=== PATIENT | male | born 1950 | race Two or more races ===

== ENCOUNTER 2020-12-15 12:54 | Emergency (ER) | payer BC, OTHER ==
[~2020-12-15] VITALS: Ht 165.1 cm; Wt 81.6 kg
[2020-12-15 13:00] VITALS: BP 132/59
[2020-12-15 13:46] LABS: Urine Bacteria NONE SEEN /hpf (None Seen); Urine Blood 2+ /uL (Negative); Urine Specific Gravity 1.014 (1.001-1.035); Urine WBC 16 /hpf (0 - 3)
== END 2020-12-15 14:59 | disposition home or self-care (01) ==
LOC: ER 12:54
DX: R33.9 Retention of urine, unspecified (principal); I10 Essential (primary) hypertension; Z86.73 Personal history of transient ischemic attack (TIA), and cerebral infarction without residual deficits
CPT/HCPCS: 51702; 81001

== ENCOUNTER 2020-12-20 11:38 | Emergency (ER) | payer BC ==
[~2020-12-20] VITALS: Ht 165.1 cm; Wt 81.6 kg
[2020-12-20 13:53] LABS: Basophils # (auto) 0 10 ^3/uL (0-0.2); Basophils % (auto) 0.2 % (0.0-2.0); Eosinophils # (auto) 0.1 10 ^3/uL (0-0.8); Eosinophils % (auto) 0.7 % (0.0-7.0); Hematocrit 41.4 % (41.0-53.0); Hemoglobin 13.9 g/dL (13.5-17.5); Lymphocytes # (auto) 1.1 10 ^3/uL (0.4-5.4); Lymphocytes % (auto) 12.6 % (10.0-50.0); Mean Corpuscular Hemoglobin 30.5 pg (28.0-32.0); Mean Corpuscular Hgb Conc. 33.5 g/dL (32.0-36.0); Mean Corpuscular Volume 90.9 fL (80.0-100.0); Monocytes # (auto) 0.6 10 ^3/uL (0-1.3); Neutrophils # (auto) 7.3 10 ^3/uL (1.6-8.6); Neutrophils % (auto) 79.5 % (37.0-80.0); Red Blood Cells 4.55 10^6/uL (4.5-5.90); Red Cell Distribution Width 14.9 % (11.8-14.3); White Blood Cell 9.1 10^3/uL (4.4-10.8)
[2020-12-20 13:57] LABS: Urine Bacteria FEW /hpf (None Seen); Urine Blood 2+ /uL (Negative); Urine Specific Gravity 1.012 (1.001-1.035); Urine WBC 13 /hpf (0 - 3)
[2020-12-20 14:13] LABS: Potassium 3.5 mmol/L (3.5-5.1)
[2020-12-20 14:19] LABS: Albumin 3.4 g/dL (3.4-5.0); BUN/Creatinine Ratio 23.6; Bilirubin, Total 0.7 mg/dL (0.2-1.0); Calcium 8.9 mg/dL (8.5-10.1); Total Protein 7.8 g/dL (6.4-8.2)
[2020-12-20 14:59] VITALS: BP 143/67
[2020-12-20] MEDS ORDERED: CIPROFLOXACIN HCL 500 MG TAB PO ONE (15:00)
== END 2020-12-20 15:12 | disposition home or self-care (01) ==
LOC: ER 11:38
DX: R33.9 Retention of urine, unspecified (principal); N39.0 Urinary tract infection, site not specified; I10 Essential (primary) hypertension; I25.10 Atherosclerotic heart disease of native coronary artery without angina pectoris
CPT/HCPCS: 36415; 51702; 80053; 81001; 85025; 93005

== ENCOUNTER 2021-01-09 00:34 | Emergency (ER) | payer BC ==
[~2021-01-09] VITALS: Ht 162.6 cm; Wt 81.6 kg
[2021-01-09 03:29] LABS: Urine Bacteria FEW /hpf (None Seen); Urine Blood 2+ /uL (Negative); Urine Specific Gravity 1.014 (1.001-1.035); Urine WBC 255 /hpf (0 - 3); Urine WBC Clumps PRESENT /hpf (None Seen)
[2021-01-09 07:31] VITALS: BP 167/74
== END 2021-01-09 08:05 | disposition home or self-care (01) ==
LOC: ER 00:34
DX: R33.9 Retention of urine, unspecified (principal); N39.0 Urinary tract infection, site not specified; I10 Essential (primary) hypertension; I25.10 Atherosclerotic heart disease of native coronary artery without angina pectoris
CPT/HCPCS: 51702; 81001